=== PATIENT | male | born 1985 | race African-American/Black ===

== ENCOUNTER 2021-10-04 08:30 | Emergency (ER) | payer SELFPAY ==
[~2021-10-04] VITALS: Ht 167.6 cm; Wt 75.0 kg
[2021-10-04 08:39] VITALS: BP 130/77
[2021-10-04] MEDS ORDERED: KETOROLAC 60MG/2ML VIAL IM ONE (09:15)
[2021-10-04] MEDS ORDERED: OXYC-100 PO (09:17)
== END 2021-10-04 10:05 | disposition home or self-care (01) ==
LOC: ER 08:30
DX: G89.29 Other chronic pain (principal); M54.59 Other low back pain
CPT/HCPCS: 96372; 99283; J1885

== ENCOUNTER 2022-12-03 11:19 | Emergency (ER) | payer MEDICAID ==
[~2022-12-03] VITALS: Ht 172.7 cm; Wt 79.0 kg
[~2022-12-03 11:19] MED LIST: OXYC-100 PO
[2022-12-03 11:28] VITALS: BP 122/88
[2022-12-03 14:39] LABS: CLARITY URINE CLEAR (CLEAR); COLOR URINE YELLOW (YELLOW); KETONES URINE TRACE (NEGATIVE); LEUKOCYTE ESTERASE URINE NEGATIVE (NEGATIVE); NITRITE URINE NEGATIVE (NEGATIVE); OCCULT BLOOD URINE NEGATIVE (NEGATIVE); PH URINE 8.5 (4.5-8.0); PROTEIN URINE NEGATIVE (NEGATIVE); SPECIFIC GRAVITY URINE 1.019 (1.005-1.030)
[2022-12-03] MEDS ORDERED: MAGNESIUM/ALUMINUM HYDROXIDE/SIMETHICONE 30ML UDC PO ONE (14:45)
[2022-12-03] MEDS ORDERED: FAMOTIDINE 20MG TABLET PO ONE (14:45)
[2022-12-03] MEDS ORDERED: ONDANSETRON HCL 4MG TABLET PO ONE (14:45)
[2022-12-03 15:01] LABS: BASOPHILS % 0.7 % (0.0-2.0); EOSINOPHILS % 3.4 % (0.0-5.0); HEMATOCRIT. 45.4 % (42.0-52.0); HEMOGLOBIN. 15.3 g/dL (14.0-18.0); LYMPHOCYTES % 43.5 % (20.0-50.0); MEAN CORPUSCULAR HEMOGLOBIN 29.5 pg (28.0-32.0); MEAN CORPUSCULAR VOLUME 87.7 fL (80.0-94.0); MONOCYTES % 8.3 % (2.0-8.0); NEUTROPHILS % 44.1 % (40.0-76.0); RED BLOOD CELL COUNT 5.18 mill/uL (4.7-6.1); RED CELL DISTRIBUTION WIDTH 16.7 % (11.6-14.6)
[2022-12-03 15:05] LABS: CHLORIDE 107 mEq/L (98-107)
[2022-12-03] MEDS ORDERED: FAMO-135 MT (15:45)
[2022-12-03] MEDS ORDERED: LIDO30CR20 TP (15:45)
== END 2022-12-03 15:54 | disposition home or self-care (01) ==
LOC: ER 11:24
DX: R10.13 Epigastric pain (principal); K64.4 Residual hemorrhoidal skin tags; R30.0 Dysuria
CPT/HCPCS: 36415; 80053; 81003; 83605; 83690; 85025; 99284; Q0162